=== PATIENT | female | born 1955 | race Two or more races ===

== ENCOUNTER 2021-10-12 05:20 | Inpatient (IN) | payer MEDICARE, OTHER ==
[~2021-10-12] VITALS: Ht 172.7 cm; Wt 131.5 kg
[2021-10-12] MEDS ORDERED: ACETAMINOPHEN 325MG TABLET PO STA (05:43)
[2021-10-12] MEDS ORDERED: VANCOMYCIN 1G PREMIX 200 ML IV ONE (05:45)
[2021-10-12] MEDS ORDERED: SODIUM CHLORIDE 0.9% 1,000 ML IV ONE ×2 (05:45→07:45)
[2021-10-12] MEDS ORDERED: PIPERACILLIN/TAZ 3.375G PREMIX 50 ML IV ONE (05:45)
[2021-10-12 06:53] LABS: HEMATOCRIT. 42.3 % (36.0-48.0); HEMOGLOBIN. 13.8 g/dL (12.0-16.0); MEAN CORPUSCULAR HEMOGLOBIN 28.9 pg (28.0-32.0); MEAN CORPUSCULAR VOLUME 88.6 fL (81.0-99.0); MEAN PLATELET VOLUME 8.6 fl (7.4-10.4); PLATELET 239 x1000/uL (130-400); RED BLOOD CELL COUNT 4.77 mill/uL (4.2-5.4); RED CELL DISTRIBUTION WIDTH 13.7 % (11.6-14.6)
[2021-10-12 07:03] LABS: CHLORIDE 102 mEq/L (98-107)
[2021-10-12 07:36] LABS: ATYPICAL LYMPHOCYTES 2
[2021-10-12 07:37] LABS: PLATELET ESTIMATE NORMAL
[2021-10-12 10:47] LABS: CLARITY URINE CLEAR (CLEAR); COLOR URINE YELLOW (YELLOW); KETONES URINE NEGATIVE (NEGATIVE); LEUKOCYTE ESTERASE URINE NEGATIVE (NEGATIVE); NITRITE URINE NEGATIVE (NEGATIVE); OCCULT BLOOD URINE NEGATIVE (NEGATIVE); PH URINE 6.5 (4.5-8.0); PROTEIN URINE NEGATIVE (NEGATIVE); SPECIFIC GRAVITY URINE 1.012 (1.005-1.030); UROBILINOGEN URINE 0.2 E.U./dL (0.2-1.0)
[2021-10-12] MEDS ORDERED: GUAIFENESIN 200MG/10ML SUGAR FREE UDC PO PRN (12:45)
[2021-10-12] MEDS ORDERED: ONDANSETRON HCL 4MG/2ML INJ IV PRN (12:45)
[2021-10-12] MEDS ORDERED: IPRATROPIUM/ALBUTEROL 0.5-3(2.5)MG/3ML NEB HHN PRN (12:45)
[2021-10-12] MEDS ORDERED: MAGNESIUM/ALUMINUM HYDROXIDE/SIMETHICONE 30ML UDC PO PRN (12:45)
[2021-10-12] MEDS ORDERED: LORAZEPAM 0.5MG TABLET PO PRN (12:45)
[2021-10-12] MEDS ORDERED: PIPERACILLIN/TAZOBACTAM 3.375 G in DEXTROSE 5% WATER 50 ML IV SCH (12:45)
[2021-10-12] MEDS ORDERED: DOCUSATE SODIUM 100MG CAPSULE PO PRN (12:45)
[2021-10-12] MEDS ORDERED: CLONIDINE 0.1MG TABLET PO PRN (12:45)
[2021-10-12] MEDS: METHYLPREDNISOLONE SOD SUCC 125 MG/2 ML VIAL IV SCH ×2 (13:25→18:28)
[2021-10-12] MEDS: ENOXAPARIN 40MG/0.4ML SYR SUBCUT SCH (13:26)
[2021-10-12] MEDS: ACETAMINOPHEN 325MG TABLET PO PRN (13:54)
[2021-10-12] MEDS ORDERED: PIPERACILLIN/TAZ 3.375G PREMIX 50 ML IV SCH (14:00)
[2021-10-12] MEDS ORDERED: FLUT1BLS13 IH (22:45)
[2021-10-12] MEDS ORDERED: FERR-71 PO (22:45)
[2021-10-12] MEDS ORDERED: MELO-106 PO (22:45)
[2021-10-12] MEDS ORDERED: ESCI-7 PO (22:45)
[2021-10-12] MEDS ORDERED: BENZ200C52 PO (22:45)
[2021-10-12] MEDS ORDERED: QUIN1TAB PO (22:45)
[2021-10-12] MEDS ORDERED: CYCL10TA7 PO (22:45)
[2021-10-12] MEDS ORDERED: ARIP10TA56 PO (22:45)
[2021-10-12] MEDS ORDERED: LEVO50TA8 PO (22:45)
[2021-10-12] MEDS ORDERED: [UNRECOGNIZED DRUG - CODE] PO (22:45)
[2021-10-12] MEDS ORDERED: PREG150C PO (22:45)
[2021-10-12] MEDS ORDERED: ALPR-340 PO (22:45)
[2021-10-12] MEDS ORDERED: PANT40TA51 PO (22:45)
[2021-10-12] MEDS ORDERED: OXYC10TA48 PO (22:45)
[2021-10-12] MEDS ORDERED: DULO30CA52 PO (22:45)
[2021-10-12] MEDS ORDERED: ESTR1TAB17 PO (22:45)
[2021-10-12] MEDS ORDERED: AMIT25TA9 PO (22:45)
[2021-10-12] MEDS ORDERED: MONT10TA21 PO (22:45)
[2021-10-12 22:51] VITALS: BP 123/58
[2021-10-12 23:27] VITALS: BP 123/58
[2021-10-13] MEDS: ENOXAPARIN 40MG/0.4ML SYR SUBCUT SCH ×2 (00:05→13:11)
[2021-10-13] MEDS: PIPERACILLIN/TAZOBACTAM 3.375 G in DEXTROSE 5% WATER 50 ML IV SCH ×3 (00:05→15:10)
[2021-10-13] MEDS: METHYLPREDNISOLONE SOD SUCC 125 MG/2 ML VIAL IV SCH ×3 (00:05→13:08)
[2021-10-13 04:00] VITALS: BP 106/54
[2021-10-13] MEDS: ACETAMINOPHEN 325MG TABLET PO PRN ×2 (06:01→10:30)
[2021-10-13 07:20] LABS: HEMATOCRIT. 40.3 % (36.0-48.0); MEAN CORPUSCULAR HEMOGLOBIN 28.9 pg (28.0-32.0); MEAN CORPUSCULAR VOLUME 89.5 fL (81.0-99.0); MEAN PLATELET VOLUME 8.7 fl (7.4-10.4); PLATELET 236 x1000/uL (130-400)
[2021-10-13 07:39] LABS: CHLORIDE 104 mEq/L (98-107)
[2021-10-13 07:47] LABS: LDL CHOLESTEROL 65 mg/dL (5-100)
[2021-10-13 07:49] LABS: HDL CHOLESTEROL 90 mg/dL (40-59)
[2021-10-13 08:00] VITALS: BP 117/68
[2021-10-13] MEDS ORDERED: DEXTROSE 50% WATER 50ML SYRINGE IV PRN (09:30)
[2021-10-13 09:35] LABS: BG BASE EXCESS 5.1 mmol/L (-2.0-2.0); BG CARBOXYHEMOGLOBIN 0.4 % (0.5-1.5); BG DEOXYHEMOGLOBIN 4.7 % (0.0-5.0); BG FRACTION INSPIRED OXYGEN 21; BG HCO3 ACT 28.2 mmol/L (22.0-26.0); BG METHEMOGLOBIN 0.1 % (0.0-1.5); BG OXYGEN SATURATION 95.3 % (92.0-98.5); BG OXYHEMOGLOBIN 94.8 % (94.0-97.0); BG PCO2 36.5 mmHg (35.0-45.0); BG PH 7.506 (7.350-7.450); BG PO2 66.4 mmHg (75.0-100.0); BG SAMPLE SITE LEFT RADIAL; BG TOTAL HEMOGLOBIN 13.5 g/dL (12.0-18.0); BG VENT MODE ROOM AIR
[2021-10-13 11:00] LABS: PLATELET ESTIMATE NORMAL
[2021-10-13 12:00] VITALS: BP 135/64
[2021-10-13] MEDS: BLOOD SUGAR DIAGNOSTIC STRIP TEST SCH ×2 (12:04→16:45)
[2021-10-13] MEDS ORDERED: AMITRIPTYLINE 25MG TABLET PO PRN (12:15)
[2021-10-13] MEDS ORDERED: ALPRAZOLAM 0.5 MG TABLET PO PRN (12:15)
[2021-10-13] MEDS ORDERED: TIZANIDINE HCL 2MG TABLET PO PRN (12:15)
[2021-10-13] MEDS ORDERED: CYCLOBENZAPRINE 10MG TABLET PO PRN (12:15)
[2021-10-13] MEDS ORDERED: LEVOTHYROXINE SODIUM 50MCG TABLET PO SCH (12:30)
[2021-10-13] MEDS ORDERED: PANTOPRAZOLE 40MG DR TABLET PO SCH (12:30)
[2021-10-13] MEDS ORDERED: CITALOPRAM HYDROBROMIDE 10MG TABLET PO SCH (12:30)
[2021-10-13] MEDS ORDERED: ARIPIPRAZOLE 5MG TABLET PO SCH (12:30)
[2021-10-13] MEDS: INSULIN LISPRO 100 UNITS/ML SUBCUT SCH ×2 (12:32→17:54)
[2021-10-13] MEDS ORDERED: BENZONATATE 200MG CAPSULE PO SCH (13:00)
[2021-10-13] MEDS ORDERED: PREGABALIN 75MG CAPSULE PO SCH (13:00)
[2021-10-13] MEDS ORDERED: BENZONATATE 100MG CAPSULE PO SCH (13:22)
[2021-10-13] MEDS ORDERED: DULOXETINE HCL 30MG DR CAPSULE PO SCH (14:00)
[2021-10-13 16:00] VITALS: BP 135/62
[2021-10-13 16:19] VITALS: BP 135/62
[2021-10-13] MEDS ORDERED: MONTELUKAST SODIUM 10MG TABLET PO SCH (21:00)
== END 2021-10-13 18:25 | disposition home or self-care (01) | DRG 202 ==
LOC: ER 05:20 → MICUSO 08:27 → EDBEDREQ 08:40 → EDBEDREQSVC 08:40 → 5WST 23:19
PROVIDERS: ADMIT Hospitalist; ATTEND Hospitalist
DX: J45.901 Unspecified asthma with (acute) exacerbation (principal); E66.2 Morbid (severe) obesity with alveolar hypoventilation; Z68.41 Body mass index [BMI] 40.0-44.9, adult; J06.9 Acute upper respiratory infection, unspecified; E11.9 Type 2 diabetes mellitus without complications; F32.A Depression, unspecified; Z20.822 Contact with and (suspected) exposure to COVID-19; F41.9 Anxiety disorder, unspecified; I10 Essential (primary) hypertension; Z88.8 Allergy status to other drugs, medicaments and biological substances
CPT/HCPCS: 36415; 36600; 71045; 80053; 80061; 81003; 82375; 82805; 82962; 83036; 83605; 84145; 84484; 85025; 87426; 93005; 93970; 94640; 99291; A6261; J1650; J1815; J2543; J2930; J3370; J7030; J7040; J7060